=== PATIENT | female | born 1965 | race American Indian/Alaskan Native ===

== ENCOUNTER 2016-10-22 07:36 | Day surgery (SDC) | payer OTHER ==
[2015-12-12 07:22] VITALS: BMI 38.7
[2016-10-22] MEDS: cefOXitin IV 2 gm in Dextrose 2 GM/50 ML BAG IVPB ONE ×2 (08:40→09:00)
[2016-10-22] MEDS ORDERED: Lactated Ringer's 1,000 ML IV ONE ×2 (08:40)
[2016-10-22] MEDS ORDERED: Midazolam 2 MG/2 ML VIAL ONE (08:51)
[2016-10-22] MEDS ORDERED: Propofol 10 mg/ml Inj (20 ML) ONE (08:51)
[2016-10-22] MEDS ORDERED: HYDROmorphone 0.5 mg/0.5 ml ISec IVP PRN (09:29)
--- NOTE | 2016-10-22 10:04 | OP ---
PROCEDURE DATE: 10/22/2016 PREOPERATIVE DIAGNOSES: Fibroid uterus, menorrhagia. POSTOPERATIVE DIAGNOSES: Fibroid uterus, menorrhagia. PROCEDURE: Hysteroscopy, hysteroscopic myomectomy. FINDINGS: A 1 cm posterior submucosal myoma which was resected up to the level of the endometrium. The remainder of the endometrium is normal. SURGEON: Dr. Eisenberg. ANESTHESIA: General. ESTIMATED BLOOD LOSS: Less than 1 mL. COMPLICATIONS: Nil. After the risks, benefits, and alternatives of the planned procedures including, but not limited to i nfection, hemorrhage, deep vein thrombosis, atelectasis, pneumonia, pulmonary embolism, damage to radha dder, damage to ureter, renal insufficiency, renal failure, wound infection, wound dehiscence, incisi onal hernia, keloid formation, damage to large and small intestine, damage to inferior vena cava and the aorta requiring extensive repair, recurrence, anesthesia complications, electrolyte imbalance, po ssibility of and other complications that were discussed, but are not listed above have been ex plained to the patient and all her questions answered, informed consent was obtained. The patient wa s taken to the operating room in a stable condition. Under suitable level of general anesthesia, she was prepped and draped in a sterile fashion after having been placed in a dorsal lithotomy position. Coleman catheter was inserted. Examination under anesthesia revealed a normal size uterus, anteverte d with no adnexal mass. A weighted speculum was inserted into the vagina. The anterior lip of the c ervix was grasped using a single tooth tenaculum. An endocervical curettage was performed and scant tissue was obtained. Uterus was sounded to 7 cm. Cervix was dilated to a #18 Hanks dilator. A hyst eroscope was inserted into the uterus and using a MyoSure device, a 1 cm posterior submucosal myoma w as resected up to the level of the endometrium. The remainder of the endometrium was noted to be nor mal. Hysteroscope was then removed. An endometrial curettage was performed. Scant tissue was obtai peace. The patient was then transferred to the recovery room in a stable condition. Pad and instrumen t counts were correct x 2. There were no complications. Total fluid deficit was 32 mL. Harish Eisenberg MD cc: [id number] TT: 10/22/2016 10:03:38 tn
[2016-10-22 11:40] VITALS: PULSE 73; O2SAT 96
[2016-10-22 12:25] VITALS: BP 117/74; RESP 18; TEMP 97.8
== END 2016-10-22 12:15 | disposition home or self-care (01) ==
LOC: C.SDS 07:36
PROVIDERS: ATTEND Obstetrics & Gynecology Reproductive Endocrinology
DX: D25.0 Submucous leiomyoma of uterus (principal); N92.0 Excessive and frequent menstruation with regular cycle
CPT/HCPCS: 36415; 58145; 58558; 86850; 86900; 88305; J0694; J1100; J1170; J2250; J2405; J2704; J3010; J7120